=== PATIENT | male | born 1990 | race Caucasian/White ===

== ENCOUNTER 2016-08-31 13:34 | Emergency (ER) | payer OTHER ==
[2016-08-31 13:47] VITALS: RESP 16
--- NOTE | 2016-08-31 16:47 | EDPHY ---
H & P Time Seen by Provider: 08/31/16 15:30 HPI/ROS: HPI: 26-year-old male presents to emergency department with chief concern facial laceration that occurred at 12:30 p.m. today when he slipped on the ice and fell on a rock impacting the left supraorbital region. He denies loss of consciousness. He remembers the entire event. He denies dizziness, headache, visual changes, neck pain, nausea, vomiting, weakness or numbness of his extremities. He is up-to-date with tetanus. 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 No acute distress. Face: Left supraorbital laceration measuring 2 cm x 0 point 7 5 cm x 1 cm, associated ecchymosis and swelling. EENT: PERRLA. EOMI. No papilledema. no conjunctival injection or hemorrhage. TMs intact, translucent. No evidence of bleeding or otorrhea. Nasal septum midline, nasal mucosa pink. no evidence of drainage. Uvula midline, pharynx without redness. Neck: No midline tenderness, full range of motion Resp: Breathing unlabored. Lungs clear to auscultation bilaterally. CV: HRR. S1S2. No MRG. GI: Abdomen soft, nontender. Bowel sounds normoactive and positive x4 quadrants. Back: No midline thoracic or lumbar tenderness Skin: Warm, dry. Laceration as documented above. Capillary refill less than 2 seconds. Musculoskeletal: Strength equal and 5+ in all 4 extremities. Neuro: No focal neuro deficit. CN II through XII intact. Rapid alternating hand movements intact. Finger to nose intact. Heel to lala intact. Negative Romberg. Negative pronator drift. Gait even and steady. Memory and recall of 3/3 objects at 5 minutes intact. Upper and lower extremity DTRs 2+. Extremities: Full range of motion. Constitutional: Initial Vital Signs Temperature (C) 36.6 C 08/31/16 13:43 Heart Rate 65 08/31/16 13:43 Respiratory Rate 16 08/31/16 13:43 Blood Pressure 134/95 H 08/31/16 13:43 O2 Sat (%) 96 08/31/16 13:43 O2 Delivery Mode Room Air Allergies/Adverse Reactions: No Known Allergies Allergy (Unverified 08/31/16 13:41) Home Medications: Medication Instructions Recorded Claritin 08/31/16 Docusite 08/31/16 Escitalopram Oxalate 08/31/16 Hydrocodone/Acetaminophen [[place] 1 each PO Q4 PRN #8 tablet 08/31/16 5/325 (*)] Medical Decision Making Procedures: After verbal consent was obtained and risks and benefits explained, the laceration was anesthetized using a total of 5 mL of 0.5% Marcaine. Lac then irrigated per protocol by train electronic technician. Under sterile procedure, the wound was explored to its base with a gloved finger and no foreign body was identified. No deep structure identified. Wound was then draped and sterile procedure followed during laceration repair. Wound was repaired using # 7, 6-0 Prolene running sutures. After repair, laceration cleansed, bacitracin applied. Procedure performed by myself. Procedure was simple. Pt tolerated the procedure well. ED Course/Re-evaluation: 26-year-old male presents to ED with a laceration located supraorbital E after a fall on a rock today. Event was witnessed. There was no loss of consciousness. No amnesia. He has no dizziness, headache, visual changes, or neck pain. No nausea or vomiting. Maxillofacial CT negative for evidence of fracture. As he has no focal neuro deficit, no headache, no visual changes, no dizziness , head CT not ordered. Patient is with his girlfriend. They have been counseled regarding need for prompt return should he develop any concerning symptoms. They agree to this and are comfortable with this plan. Differential Diagnosis: Facial laceration, facial fracture, head injury, intracranial bleed, fracture, cervical spine injury Departure - Departure Disposition: Home, Routine, Self-Care Clinical Impression: Supraorbital laceration Head injury Qualifiers: Encounter type: initial encounter Qualifier Code: (S09.90XA) Unspecified injury of head, initial encounter Condition: Good Instructions: Laceration (ED), Head Injury (ED) Additional Instructions: Plan: We saw you here today at the ED with a laceration of your supraorbital region. We closed the wound with 7 running sutures. We'll have you begin cleaning the area daily by letting warm, soapy water run over it, but do not scrub or rub the site. Remove dried blood with a Q-tip dipped in water. Apply a thin layer of antibiotic ointment. Continue this routine daily. Recheck urgently if the area develops redness, swelling, increased pain, or red streaking above the wound, or if you develop a fever. Return to the emergency department in 5-7 days for suture removal. Return prior to then if any issues or concerns. You may use 600 mg of ibuprofen every 6 hours for fever, inflammation, or pain. Always take ibuprofen with food and stay well hydrated while taking. Do not exceed the maximum allowable dose in a 24 hour period which is 2400 mg. 1 [place] every 4 hours as needed for severe pain--Never drink or drive while taking this medication. This medication impairs decision making capacity so do not work or sign important documents while taking. This medication its constipating so drink plenty of fluids and consider an oloi-kzl-nbgsgck stool softener such as docusate sodium (Colace) while taking this medication. This medication has addictive properties. You should use the least amount for the shortest amount of time. [facility] ED and [facility]gent [facility] do not refill narcotic pain medication prescriptions. This is a hospital policy. You will need to follow up as indicated for recheck for further narcotic refills. For worsening symptoms including unusual behavior, dizziness, headache, visual changes, nausea or vomiting return promptly for recheck Awaken every 2-3 hours tonight to evaluate level of consciousness Prescriptions: Hydrocodone/Acetaminophen [[place] 5/325 (*)] 1 each PO Q4 PRN #8 tablet PRN Reason: severe pain
[2016-08-31] MEDS ORDERED: IBUPROFEN 600 MG TAB PO ONE (16:50)
--- NOTE | 2016-08-31 17:07 | CT ---
CT Scan of the Face August 31, 2016 Indication: Trauma. Technique: 0.625 mm thick collimated slices were obtained through the face from just below the joseluis ble to above the frontal sinuses. The data was reconstructed in the sagittal and coronal plane. Dose reduction techniques were utilized. Findings: No acute facial fracture. The mandible is intact and anatomically aligned. Soft tissue def ormity and swelling is present along the left supraorbital rim. No retained foreign body. Bilateral globes are intact. No retrobulbar hematoma. A benign 2 cm retention cyst resides in the lef t maxillary sinus. Mild mucosal thickening is present in the ethmoid and right maxillary sinus. Masto id air cells are clear. Impression: 1. No acute facial fracture. 2. Mild left periorbital soft tissue swelling. 3. Mild maxillary and ethmoid sinus disease. Comment: Case was discussed with Kelley Jones NP at 4:45 p.m. on August 31, 2016.
[2016-08-31 17:13] VITALS: BP 137/70; PULSE 73; TEMP 98.2; O2SAT 97
== END 2016-08-31 17:21 | disposition home or self-care (01) ==
PROC: 0HQ1XZZ Repair Face Skin, External Approach (ICD-10-PCS; principal; 2016-08-31)
DX: S01.81XA Laceration without foreign body of other part of head, initial encounter (principal); W00.0XXA Fall on same level due to ice and snow, initial encounter

== ENCOUNTER 2016-09-04 22:43 | Emergency (ER) | payer OTHER ==
[2016-09-04 22:52] VITALS: BP 134/71; PULSE 79; RESP 20; TEMP 98.4; O2SAT 93
--- NOTE | 2016-09-04 23:33 | EDPHY ---
H & P Stated Complaint: left wrist injury HPI/ROS: HPI CHIEF COMPLAINT: Left wrist pain HISTORY OF PRESENT ILLNESS: This patient very pleasant 26-year-old male no significant medical history except for depression, presents to the emergency room with left wrist pain after skiing accident today. He states he is unsure exactly what he did to his left wrist however he tumbled while skiing and now he has left wrist pain and swelling specifically noted over the distal radius. He does have some scaphoid tenderness. Denies any other areas of injury. he tells me his pain is 6/10 throbbing at this time. Past Medical History: Depression Past Surgical History: No significant surgical history Social History: denies use of drugs alcohol tobacco products Family History: noncontributory ROS REVIEW OF SYSTEMS: A comprehensive 10 point review of systems is otherwise negative aside from elements mentioned in the history of present illness. Exam Constitutional triage nursing summary reviewed, vital signs reviewed, awake/ alert. Eyes normal conjunctivae and sclera, EOMI, PERRLA. HENT normal inspection, atraumatic, moist mucus membranes, no epistaxis, neck supple/ no meningismus, no raccoon eyes. Respiratory clear to auscultation bilaterally, normal breath sounds, no respiratory distress, no wheezing. Cardiovascular rate normal, regular rhythm, no murmur, no edema, distal pulses normal. Gastrointestinal soft, non-tender, no rebound, no guarding, normal bowel sounds, no distension, no pulsatile mass. Genitourinary no CVA tenderness. Musculoskeletal left wrist; swelling and pain noted over the distal radius and pain over the scaphoid, he is neurovascular intact good pulse, good cap refill, warm extremity full range of motion of the wrist however has pain with range of motion. No elbow pain, no finger pain normal hand exam. Good cap refill warm extremity. no midline vertebral tenderness, full range of motion, no calf swelling, no tenderness of extremities, no meningismus, good pulses, neurovascularly intact. Skin pink, warm, & dry, no rash, skin atraumatic. Neurologic awake, alert and oriented x 3, AAOx3, moves all 4 extremities equally, motor intact, sensory intact, CN II-XII intact, normal cerebellar, normal vision, normal speech. Psychiatric normal mood/affect. Heme/Lymph/Immune no lymphadenopathy. Differential Diagnosis: Includes but is not limited to in a particular order, wrist contusion, wrist sprain, wrist fracture Medical Decision Making: This patient had an x-ray of his left wrist, he will be given ibuprofen 800 mg for pain control [place] for pain control Re-evaluation: ED x-ray left wrist for view: This shows an intra-articular distal radius fracture. I did speak with Orthopedics on-call specifically spoke with Saskia Mojica with Orthopedics on-call for Dr. Calhoun agrees with plan for thumb spica splint , ibuprofen and [place] for pain control and follow up with Dr. Valentine's with [facility]. Post splint placement evaluation: This patient neurovascularly intact good cap refill, warm extremity his splint is appropriate no signs of compartment syndrome. He is resting comfortably and is comfortable with the splint he has been placed in a sling. The splint was placed by NOEMI Gan. He is currently in a thumb spica splint. I did burn a disc for him. He will follow up in Orthopedics in [place]. Source: Patient - Personal History Current Tetanus Diphtheria and Acellular Pertussis (TDAP): Yes - Medical/Surgical History Hx Asthma: No Hx Chronic Respiratory Disease: No Hx Diabetes: No Hx Cardiac Disease: No Hx Renal Disease: No Hx Cirrhosis: No Hx Alcoholism: No Hx HIV/AIDS: No Hx Splenectomy or Spleen Trauma: No Other PMH: BENIGN BRAIN TUMOR/VERTIGO - Social History Smoking Status: Never smoked Constitutional: Initial Vital Signs Temperature (C) 36.9 C 09/04/16 22:50 Heart Rate 79 09/04/16 22:50 Respiratory Rate 20 09/04/16 22:50 Blood Pressure 134/71 H 09/04/16 22:50 O2 Sat (%) 93 09/04/16 22:50 O2 Delivery Mode Room Air Allergies/Adverse Reactions: No Known Allergies Allergy (Unverified 09/04/16 22:48) Home Medications: Medication Instructions Recorded Claritin 08/31/16 Docusite 08/31/16 Escitalopram Oxalate 08/31/16 Hydrocodone/Acetaminophen [[place] 1 each PO Q4 PRN #8 tablet 08/31/16 5/325 (*)] Hydrocodone/APAP 5/325 [[place] 1 - 2 tab PO Q4H PRN #10 tab 09/04/16 5/325] Ibuprofen [Motrin (*)] 800 mg PO Q6-8PRN #10 tab 09/04/16 Medical Decision Making - Data Points Medications Given: Discontinued Medications Acetaminophen/Hydrocodone Bitart ([place] 5/325) 1 tab PO EDNOW ONE Stop: 09/04/16 23:39 Last Admin: 09/04/16 23:42 Dose: 1 tab Ibuprofen (Motrin) 800 mg PO EDNOW ONE Stop: 09/04/16 23:39 Last Admin: 09/04/16 23:42 Dose: 800 mg Departure - Departure Disposition: Home, Routine, Self-Care Clinical Impression: Wrist fracture, left Qualifiers: Encounter type: initial encounter Fracture type: closed Qualifier Code: ( S62.102A) Fracture of unspecified carpal bone, left wrist, initial encounter for closed fracture Condition: Good Instructions: Wrist Injury (ED), Wrist Fracture in Adults (ED) Additional Instructions: 1. Please ice her wrist. 2. take ibuprofen and [place] for pain control 3. You will need to follow up with wrist/hand surgeon for most likely operative fixation of this fracture. Referrals: OUT OF STATE,. [Primary Care Provider] - As per Instructions John Valentine MD [Medical Doctor] - As per Instructions Prescriptions: Ibuprofen [Motrin (*)] 800 mg PO Q6-8PRN #10 tab Hydrocodone/APAP 5/325 [[place] 5/325] 1 - 2 tab PO Q4H PRN #10 tab PRN Reason: Pain, Moderate
[2016-09-04] MEDS ORDERED: IBUPROFEN 200 MG TAB PO ONE (23:38)
[2016-09-04] MEDS ORDERED: HYDROCODONE/APAP 5/325 TAB PO ONE (23:38)
[2016-09-04] MEDS ORDERED: HYDROCOD/APAP 5/325 PREPACK#6 BTL TAKEHOME ONE ×2 (23:56→23:57)
--- NOTE | 2016-09-05 07:12 | DX ---
Left Wrist, Four Views 2302 hours History: Complaint about the wrist. Findings: Acute fracture of radial styloid extends into the articular surface of the distal radius, causing a lucent gap that is most apparent on the oblique projection. Short ulnar variant is mild. Carpal bones are intact. Impression: Acute intraarticular fracture of left radial styloid. MTDD
== END 2016-09-05 00:12 | disposition home or self-care (01) ==
DX: S62.102A Fracture of unspecified carpal bone, left wrist, initial encounter for closed fracture (principal); X58.XXXA Exposure to other specified factors, initial encounter; Y99.8 Other external cause status; Y93.23 Activity, snow (alpine) (downhill) skiing, snowboarding, sledding, tobogganing and snow tubing